=== PATIENT | female | born 2000 | race Two or more races ===

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

== ENCOUNTER 2021-11-26 09:25 | Emergency (ER) | payer MEDICAID ==
[~2021-11-26] VITALS: Ht 165.1 cm; Wt 72.3 kg
[2021-11-26 11:03] VITALS: BP 93/45
[2021-11-26] MEDS ORDERED: CYCL-837 PO (11:41)
[2021-11-26] MEDS ORDERED: IBUP800T27 PO (11:41)
[2021-11-26] MEDS ORDERED: KETOROLAC TROMETH 60MG/2ML VIAL IM ONE (11:45)
== END 2021-11-26 11:54 | disposition home or self-care (01) ==
LOC: ER 09:25
DX: M54.41 Lumbago with sciatica, right side (principal); M47.816 Spondylosis without myelopathy or radiculopathy, lumbar region; Z79.1 Long term (current) use of non-steroidal anti-inflammatories (NSAID); Z79.899 Other long term (current) drug therapy
CPT/HCPCS: 72100; 96372; 99283; J1885